=== PATIENT | female | born 1975 | race Caucasian/White ===

== ENCOUNTER → 2017-10-03 07:56 | Outpatient (CLI) | payer MEDICAID, SELFPAY ==
--- NOTE | 2017-10-03 07:58 | MM_ITS ---
MM Dig screening mamm BI w/CAD CAD Screening COMPARISON: Baseline digital mammograms 01/25/2013 INDICATION: There is no personal or family history of breast cancer TECHNIQUE: Standard CC and MLO images were obtained. R2 CAD reviewed. FINDINGS: Moderate diffuse fiber glandular densities are seen in both breasts slightly more prominent subareolar region right breast than left. Is a possible change in asymmetric density subareolar region left breast and has increased in heterogenic densities in the subareolar region right breast. There are multiple calcifications right breast most typical sclerosing adenosis but they show interval increase in number from the previous study. For these reasons suggest patient return for spot compression views of the areas marked on the study bilaterally. IMPRESSION: Moderate breast density with changes in both breast as described above and recommend patient return for additional imaging BI-RADS Category: 0 Need Additional Imaging Evaluation RECOMMENDED FOLLOW-UP: IMM - IMMEDIATE FOLLOW-UP RECOMMENDED (A letter has been sent to the patient regarding results of the study.)
== END ==
PROVIDERS: PCP Nurse Practitioner Family; Visit Provider Obstetrics & Gynecology
DX: Z12.31 Encounter for screening mammogram for malignant neoplasm of breast (principal)
CPT/HCPCS: 77067

== ENCOUNTER → 2017-10-20 14:04 | Outpatient (CLI) | payer MEDICAID, SELFPAY ==
--- NOTE | 2017-10-20 14:06 | MM_ITS ---
MM Dig mamm BI DX w/CAD COMPARISON: 10/03/2017 and 01/25/2013 INDICATION: Follow-up abnormal mammogram ORDERING PHYSICIAN: Ismael Alex MD PATIENT AGE: 42 years TECHNIQUE: Spot compression views are performed of both breasts FINDINGS: Right breast: Pleomorphic calcifications are present loosely clustered in the upper outer aspect of the right breast. There are other areas of calcification also noted within the right retroareolar region. These calcifications have developed since 01/25/2013 and are at least mildly suspicious. Biopsy of both of these regions is recommended Left breast: The area of asymmetric density in the retroareolar region and upper outer left breast both appear to compress out as fibroglandular tissue similar to previous exam of 01/25/2013 IMPRESSION: Suspicious calcifications in the upper outer right breast and right retroareolar region. BI-RADS Category: 4 Suspicious Abnormality-Biopsy Considered RECOMMENDED FOLLOW-UP: BIO - BIOPSY RECOMMENDED Recommend stereotactic directed biopsy of the right breast calcifications (A letter has been sent to the patient regarding results of the study.)
== END ==
PROVIDERS: PCP Nurse Practitioner Family; Visit Provider Obstetrics & Gynecology
DX: R92.8 Other abnormal and inconclusive findings on diagnostic imaging of breast (principal)
CPT/HCPCS: 77066

== ENCOUNTER → 2017-11-09 08:47 | Outpatient (CLI) | payer MEDICAID, SELFPAY ==
--- NOTE | 2017-11-09 | MM_ITS ---
MM stereotactic loc RT, MM stereotactic RT loc ea add MM Dig mamm DX unilat RT CAD, Stereotactic biopsy 2 SITES right breast, with clip placement at both sites Limited focused H&P: HISTORY: Extensive Breast calcifications which have shown marked change since 2012 Limited physical exam performed by Dr. Russ. Lungs: Clear.Heart: Regular rate and rhythm.Mental status: Within normal limits. PROCEDURE: Stereotactic biopsy performed 2 SITES right breast clip placement at both sites The patient was given 1 mg of Xanax, Lortab7. 5 mg, and analgesia and minor sedation. SITE A... STEREOTACTIC BIOPSY W/ CLIP PLACEMENT Upper-outer quadrant right breast The patient was placed on the stereotactic table and abnormal calcifications upper-outer quadrant localized most appropriate projection. The breast was prepped in the routine manner, with sterile prep and the overlying skin anesthetized. A tiny< 3 mm skin incision was performed and the 9 gauge [employer] vacuum-assisted core biopsy needle was advanced to the region of the calcification. Pre- and post fire images were obtained. After adequate positioning relative to the calcifications was ensured, multiple biopsies were obtained in the region of the calcifications specifically. The core biopsies obtained were sent for specimen mammography. NOTE: The patient had extensive calcifications which which were most extensive in the area labeled SITE A. These were well sampled. Just inferior to site a was a rather contiguous area of density with grouped calcifications labeled site B for which was considered potential third biopsy.. However after reviewing the fairly extensive training representative calcifications obtained from site a we felt that best to 2 also sampled a more distant site C a particular since the patient been on the table for lengthy. Of time and we did not feel a third stereotactic biopsy site would be feasible SITE C ..2nd STEREOTACTIC BIOPSY SITE, W/ CLIP PLACEMENT Retroareolar Region Patient was repositioned additional inspector fibrous wallboard performed. a second area of grouped calcifications corresponding with see at the retroareolar region was identified. Sterile skin preparation performed and a small less 2-3 mm incision was made in the skin through which the cirrhosis needle was advanced. These calcifications were targeted. Initial pass resulted only a few calcifications and thus the needle was slightly repositioned with additional calcifications obtained here at Site C The patient tolerated the procedures very well without significant discomfort complications.There are likely be some fairly extensive bruising. Specimen was sent for pathologic analysis which should be forthcoming within 3 working days. Routine follow-up phone call to patient is to be performed as well. A tiny titanium nonferromagnetic MicroMark with collagen plug was positioned through the mammotome needle into the both of these biopsy site described above at site a and site seen.. IMPRESSION: 1. Successful stereotactic vacuum-assisted core biopsy at 2 sites. SITE A: Upper-Outer Quadrant SITE C: Retroareolar Region Numerous right breast calcifications removed from.Both at SITE A & SITE C. 2 ... Successful placement of a titanium metal micromark. At both SITE A & SITE C 3. Patient tolerated procedure well No noted significant complications but anticipate moderately pronounced bruising at breast post biopsy TWO SPECIMEN RADIOGRAPHs: (From SITE A & SITE C:) SITE A: upper-outer quadrant ( note V label on this specimen radiograph image.) The mammographically evident numerous calcifications currently evident within the Arnav dish and within the specimens obtained during mammotome procedure. This
--- NOTE | 2017-11-09 08:49 | MM_ITS ---
MM stereotactic loc RT, MM stereotactic RT loc ea add MM Dig mamm DX unilat RT CAD, Stereotactic biopsy 2 SITES right breast, with clip placement at both sites Limited focused H&P: HISTORY: Extensive Breast calcifications which have shown marked change since 2012 Limited physical exam performed by Dr. Russ. Lungs: Clear.Heart: Regular rate and rhythm.Mental status: Within normal limits. PROCEDURE: Stereotactic biopsy performed 2 SITES right breast clip placement at both sites The patient was given 1 mg of Xanax, Lortab7. 5 mg, and analgesia and minor sedation. SITE A... STEREOTACTIC BIOPSY W/ CLIP PLACEMENT Upper-outer quadrant right breast The patient was placed on the stereotactic table and abnormal calcifications upper-outer quadrant localized most appropriate projection. The breast was prepped in the routine manner, with sterile prep and the overlying skin anesthetized. A tiny< 3 mm skin incision was performed and the 9 gauge [employer] vacuum-assisted core biopsy needle was advanced to the region of the calcification. Pre- and post fire images were obtained. After adequate positioning relative to the calcifications was ensured, multiple biopsies were obtained in the region of the calcifications specifically. The core biopsies obtained were sent for specimen mammography. NOTE: The patient had extensive calcifications which which were most extensive in the area labeled SITE A. These were well sampled. Just inferior to site a was a rather contiguous area of density with grouped calcifications labeled site B for which was considered potential third biopsy.. However after reviewing the fairly extensive healthcare representative calcifications obtained from site a we felt that best to 2 also sampled a more distant site C a particular since the patient been on the table for lengthy. Of time and we did not feel a third stereotactic biopsy site would be feasible SITE C ..2nd STEREOTACTIC BIOPSY SITE, W/ CLIP PLACEMENT Retroareolar Region Patient was repositioned additional industrial economist performed. a second area of grouped calcifications corresponding with see at the retroareolar region was identified. Sterile skin preparation performed and a small less 2-3 mm incision was made in the skin through which the cirrhosis needle was advanced. These calcifications were targeted. Initial pass resulted only a few calcifications and thus the needle was slightly repositioned with additional calcifications obtained here at Site C The patient tolerated the procedures very well without significant discomfort complications.There are likely be some fairly extensive bruising. Specimen was sent for pathologic analysis which should be forthcoming within 3 working days. Routine follow-up phone call to patient is to be performed as well. A tiny titanium nonferromagnetic MicroMark with collagen plug was positioned through the mammotome needle into the both of these biopsy site described above at site a and site seen.. IMPRESSION: 1. Successful stereotactic vacuum-assisted core biopsy at 2 sites. SITE A: Upper-Outer Quadrant SITE C: Retroareolar Region Numerous right breast calcifications removed from.Both at SITE A & SITE C. 2 ... Successful placement of a titanium metal micromark. At both SITE A & SITE C 3. Patient tolerated procedure well No noted significant complications but anticipate moderately pronounced bruising at breast post biopsy TWO SPECIMEN RADIOGRAPHs: (From SITE A & SITE C:) SITE A: upper-outer quadrant ( note V label on this specimen radiograph image.) The mammographically evident numerous calcifications currently evident within the Arnav dish and within the specimens obtained during mammotome procedure. This
== END ==
PROVIDERS: PCP Nurse Practitioner Family; Visit Provider Obstetrics & Gynecology
DX: R92.8 Other abnormal and inconclusive findings on diagnostic imaging of breast (principal)
CPT/HCPCS: 19081; 19082; 77065

== ENCOUNTER → 2017-12-15 11:31 | Outpatient (CLI) | payer MEDICAID, SELFPAY ==
[2017-12-15 12:06] LABS: Basophils # 0.1 K/mm3 (0-0.2); Basophils % 1.6 % (0.1-2.0); Eosinophils # 0.1 K/mm3 (0.0-0.4); Eosinophils % 2.1 % (0.1-12.0); Hematocrit 45.3 % (37.0-47.0); Hemoglobin 15.5 g/dL (12.2-16.2); Lymphocytes # 1.5 K/mm3 (0.7-4.5); Lymphocytes % 36.5 K/mm3 (10-50); Mean Corpuscular HGB Conc 34.3 g/dL (31.8-35.4); Mean Corpuscular Hemoglobin 31.3 pg (27.0-31.2); Mean Corpuscular Volume 91.5 fl (81-99); Mean Platelet Volume 9.4 fl (7.4-10.4); Monocytes # 0.4 K/mm3 (0.1-1.0); Monocytes % 9.8 % (1.7-9.3); Neutrophils # 2.1 K/mm3 (1.8-7.8); Platelet Count 180 K/mm3 (142-424); Red Blood Count 4.95 M/mm3 (4.20-5.40); White Blood Count 4.2 K/mm3 (4.8-10.8)
[2017-12-15 17:39] LABS: Alanine Aminotransferase 163 U/L (12-78); Albumin/Globulin Ratio 1.1 (1.1-1.8); Alkaline Phosphatase 170 U/L (46-116); Anion Gap 13.3 mEq/L (5-15); Aspartate Amino Transferase 64 U/L (15-37); Bilirubin,Total 0.2 mg/dL (0.2-1.0); Blood Urea Nitrogen 12 mg/dL (7-18); Calcium 9.5 mg/dL (8.5-10.1); Carbon Dioxide 26 mmol/L (21.0-32.0); Chloride 101 mmol/L (98-107); Chol/HDL Ratio 4.3 (1-3.5); Cholesterol 165 mg/dL (140-200); Creatinine,Serum 0.64 mg/dL (0.55-1.02); Estimated Glomerular Filt Rate 103 ml/min (>60); GFR (African American) 124 ML/MIN (>60); Globulin 3.5 gm/dl (1.3-3.2); Glucose 89 mg/dL (74-106); HDL Cholesterol 38 mg/dL (29-89); LDL Cholesterol 95 mg/dL (0-130); Potassium 4.3 mmoL/L (3.5-5.1); Sodium 136 mmol/L (136-145); Thyroid Stimulating Hormone 3.43 uIU/ml (0.358-3.740); Total Protein,Serum 7.5 gm/dL (6.4-8.2); Triglycerides 159 mg/dL (30-200); VLDL Cholesterol 32 mg/dL (0-40)
[2017-12-16 13:51] LABS: Vitamin D 25 Hydroxy 35.8 ng/mL (30.0-100.0)
[2017-12-18 06:26] LABS: Vitamin B12 1248 pg/mL (232-1245)
== END ==
PROVIDERS: Visit Provider Nurse Practitioner Family
DX: R53.83 Other fatigue (principal); R79.89 Other specified abnormal findings of blood chemistry
CPT/HCPCS: 36415; 80053; 80061; 82607; 82652; 84443; 85025

== ENCOUNTER → 2017-12-23 07:34 | Outpatient (CLI) | payer MEDICAID, SELFPAY ==
--- NOTE | 2017-12-23 08:16 | US_ITS ---
US abdomen limited HISTORY: ITS.REASON: ELEVATED LIVER ENZYMES ORDERING PHYSICIAN: Abimbola Araujo PATIENT AGE: 42 years Comparison: 01/07/2015 FINDINGS: PANCREAS: Unremarkable. No obvious mass or abnormal fluid collection. No ductal dilatation LIVER: No focal liver lesions demonstrated. Homogeneous echogenicity. No intrahepatic biliary ductal dilatation evident RIGHT KIDNEY: Unremarkable. Normal size and echogenicity. No hydronephrosis GALLBLADDER: No gallstones, gallbladder wall thickening, pericholecystic fluid, or biliary dilatation. Small hyperechoic focus is present along the posterior aspect of the fundus of the gallbladder at 5 mm consistent with a small polyp similar to the previous exam. IMPRESSION: 1. Small gallbladder polyp. 2. Otherwise negative right upper quadrant ultrasound
== END ==
PROVIDERS: PCP Nurse Practitioner Family; Visit Provider Nurse Practitioner Family
DX: R74.8 Abnormal levels of other serum enzymes (principal)
CPT/HCPCS: 76705

== ENCOUNTER → 2018-05-26 10:36 | Outpatient (CLI) | payer MEDICAID, SELFPAY ==
--- NOTE | 2018-05-26 10:38 | US_ITS ---
US transvaginal HISTORY: ITS.REASON: breast cancer ORDERING PHYSICIAN: Ismael Alex MD PATIENT AGE: 43 years Comparison: None FINDINGS: The patient has had a prior hysterectomy. The left ovary is 4 x 2.5 x 2 cm with heterogeneous echogenicity and contains a 14 x 16 x 13 mm cyst as well as a 12 x 10 mm cyst and a 13 x 10 mm cyst. The right ovary is enlarged at 5.4 x 2.6 cm and contains at least 3 cysts measuring 2.6 x 1.3, 1 x 1 cm, and 1.2 x 1 cm. At the vaginal cuff there is an oval area of isoechogenicity which measures 2.6 x 1.7 cm. This contains specular echoes and is fairly well-circumscribed. No cul-de-sac fluid evident. IMPRESSION: 1. Bilateral ovarian cysts as described above. 2. Isoechoic lesion at the vaginal stump which could represent an endometrioma or adjacent hemorrhagic cyst . Consider MRI for further evaluation.
== END ==
PROVIDERS: PCP Nurse Practitioner Family; Visit Provider Obstetrics & Gynecology
DX: C50.919 Malignant neoplasm of unspecified site of unspecified female breast (principal)
CPT/HCPCS: 76830

== ENCOUNTER → 2018-06-01 10:33 | Outpatient (CLI) | payer MEDICAID, SELFPAY ==
[2018-06-01 10:36] LABS: Microscopic, Urine URINE MICROSCOPIC (MICROSCOPIC)
[2018-06-01 10:49] LABS: Appearance,Urine CLEAR (Clear); Bilirubin,Urine Negative (Negative); Blood, Urine Negative (Negative); Color,Urine YELLOW (Yellow); Glucose,Urine (UA) Negative (Negative); Ketones,Urine Negative (Negative); Leukocyte Esterase,Urine TRACE (Negative); Nitrate,Urine Negative (Negative); Protein,Urine Negative (Negative); Specific Gravity, Urine 1.025 (1.005-1.030)
[2018-06-01 10:50] LABS: Urine Pregnancy, HCG Qual. Negative (Negative)
[2018-06-01 10:56] LABS: Bacteria,Urine 4+ /lpf; Mucus,Urine 3+ /lpf; WBC,Urine Occasional #/hpf (0-3)
[2018-06-01 11:00] LABS: Basophils # 0.1 K/mm3 (0-0.2); Basophils % 1.1 % (0.1-2.0); Eosinophils # 0.1 K/mm3 (0.0-0.4); Hematocrit 43.4 % (37.0-47.0); Hemoglobin 13.9 g/dL (12.2-16.2); Lymphocytes # 2.2 K/mm3 (0.7-4.5); Lymphocytes % 29.9 K/mm3 (10-50); Mean Corpuscular Volume 93.8 fl (81-99); Monocytes # 0.4 K/mm3 (0.1-1.0); Monocytes % 5.6 % (1.7-9.3); Neutrophils # 4.6 K/mm3 (1.8-7.8); Neutrophils % 62.4 % (37.0-80.0); Platelet Count 231 K/mm3 (142-424); Red Blood Count 4.63 M/mm3 (4.20-5.40); Red Cell Distribution Width 13.9 % (11.5-17.5); White Blood Count 7.4 K/mm3 (4.8-10.8)
[2018-06-01 12:54] LABS: Alanine Aminotransferase 23 U/L (12-78); Albumin Level 3.7 gm/dL (3.4-5.0); Albumin/Globulin Ratio 1.1 (1.1-1.8); Alkaline Phosphatase 85 U/L (46-116); Anion Gap 12.6 mEq/L (5-15); Aspartate Amino Transferase 13 U/L (15-37); Bilirubin,Total 0.3 mg/dL (0.2-1.0); Blood Urea Nitrogen 11 mg/dL (7-18); Calcium 9.1 mg/dL (8.5-10.1); Carbon Dioxide 28 mmol/L (21.0-32.0); Chloride 103 mmol/L (98-107); Creatinine,Serum 0.59 mg/dL (0.55-1.02); Estimated Glomerular Filt Rate 112 ml/min (>60); GFR (African American) 136 ML/MIN (>60); Globulin 3.3 gm/dl (1.3-3.2); Glucose 86 mg/dL (74-106); Potassium 4.6 mmoL/L (3.5-5.1); Sodium 139 mmol/L (136-145)
== END ==
PROVIDERS: PCP Nurse Practitioner Family; Visit Provider Obstetrics & Gynecology
DX: Z01.818 Encounter for other preprocedural examination (principal); C50.911 Malignant neoplasm of unspecified site of right female breast
CPT/HCPCS: 36415; 80053; 81001; 81025; 85025; 87086

== ENCOUNTER → 2018-12-25 08:14 | Outpatient (CLI) | payer MEDICAID, SELFPAY ==
--- NOTE | 2018-12-25 08:31 | US_ITS ---
US abdomen limited History:Right upper quadrant pain Ordering Physician:Abimbola Araujo APRN Patient Age: 43 years Comparison:None Findings: Pancreas:Pancreas is poorly demonstrated due to overlying bowel gas and may be better evaluate with CT if clinically desired. Liver:Unremarkable. No obvious mass or abnormal fluid collection. No ductal dilatation Right Kidney:Unremarkable. Normal size and echogenicity. No hydronephrosis Gallbladder:No gallstones, gallbladder wall thickening, pericholecystic fluid, or biliary dilatation. Small gallbladder polyp is again noted along the dorsal aspect of the gallbladder 5 mm. Small amount sludge is present in the gallbladder Impression: Small gallbladder polyp and a mild amount of gallbladder sludge otherwise negative right upper quadrant ultrasound
[2018-12-25 10:54] LABS: Alanine Aminotransferase 33 U/L (12-78); Albumin Level 3.7 gm/dL (3.4-5.0); Albumin/Globulin Ratio 0.9 (1.1-1.8); Alkaline Phosphatase 109 U/L (46-116); Anion Gap 14.5 mEq/L (5-15); Aspartate Amino Transferase 16 U/L (15-37); Bilirubin,Total 0.2 mg/dL (0.2-1.0); Blood Urea Nitrogen 11 mg/dL (7-18); Calcium 9.1 mg/dL (8.5-10.1); Carbon Dioxide 28 mmol/L (21.0-32.0); Chloride 101 mmol/L (98-107); Chol/HDL Ratio 4.9 (1-3.5); Cholesterol 237 mg/dL (140-200); Creatinine,Serum 0.68 mg/dL (0.55-1.02); Estimated Glomerular Filt Rate 95 ml/min (>60); GFR (African American) 115 ML/MIN (>60); Globulin 3.9 gm/dl (1.3-3.2); Glucose 90 mg/dL (74-106); HDL Cholesterol 48 mg/dL (29-89); LDL Cholesterol 137 mg/dL (0-130); Potassium 4.5 mmoL/L (3.5-5.1); Sodium 139 mmol/L (136-145); Total Protein,Serum 7.6 gm/dL (6.4-8.2); Triglycerides 262 mg/dL (30-200); VLDL Cholesterol 52 mg/dL (0-40)
== END ==
PROVIDERS: PCP Nurse Practitioner Family; Visit Provider Nurse Practitioner Family
DX: Z00.00 Encounter for general adult medical examination without abnormal findings (principal); I10 Essential (primary) hypertension; R10.11 Right upper quadrant pain
CPT/HCPCS: 36415; 76705; 80053; 80061

== ENCOUNTER → 2018-12-29 08:02 | Outpatient (CLI) | payer MEDICAID, SELFPAY ==
--- NOTE | 2018-12-29 08:03 | XR_ITS ---
DEXA SCAN.-BONE DENSITY STUDY HIPS AND LUMBAR SPINE HISTORY: Postmenopausal female taking tamoxifen one year 43-year-old postmenopausal female. Smoker. Hysterectomy/ovaries removed TECHNIQUE: DEXA scan hip and lumbar spine The most complete data summary and color graphic presentation of the today's ( and any prior ) DEXA findings are available in PACS. Definition and treatment guidelines included. COMPARISON: None listed LUMBAR SPINE: L1 vertebral body demonstrates the lowest T score 0.1 with BMD1.145 g/cm sq = normal density Overall mean lumbar L1-L4 T score 0.5 with BMD1.236 g/cm sq . = Normal density . HIPS: Femoral neck density is best predictor of hip fracture risk . Left femoral neck demonstrates the lower T score -0.7 with BMD0.935 g/cm sq . = Normal density Right femoral neck T score -0.6 with BMD 0.959 all region included with s Hip Mean T score = 0.0 . with BMD1.009 g/cm sq . Normal density . IMPRESSION ... Normal bone density 1. LUMBAR SPINE: . normal bone density at all levels and overall. Overall T score = 2. HIPS: Normal bone density at the femoral necks and overall at hips. WHO criteria for post-menopausal, Women: Normal: T-score at or above -1 SD Osteopenia: T-score between -1 and -2.5 SD Osteoporosis: T-score at or below -2.5 SD
== END ==
PROVIDERS: PCP Nurse Practitioner Family; Visit Provider Obstetrics & Gynecology
DX: Z78.0 Asymptomatic menopausal state (principal)
CPT/HCPCS: 77080

== ENCOUNTER → 2019-06-15 08:14 | Outpatient (CLI) | payer OTHER, SELFPAY ==
[2019-06-15 08:36] LABS: Basophils # 0.1 K/mm3 (0-0.2); Basophils % 1.3 % (0.1-2.0); Eosinophils # 0.1 K/mm3 (0.0-0.4); Hematocrit 40.9 % (37.0-47.0); Hemoglobin 12.9 g/dL (12.2-16.2); Lymphocytes % 35.7 % (10-50); Mean Corpuscular HGB Conc 31.6 g/dL (31.8-35.4); Mean Corpuscular Hemoglobin 30.2 pg (27.0-31.2); Mean Corpuscular Volume 95.6 fl (81-99); Mean Platelet Volume 9.2 fl (7.4-10.4); Monocytes # 0.3 K/mm3 (0.1-1.0); Monocytes % 5.5 % (1.7-9.3); Neutrophils # 3.1 K/mm3 (1.8-7.8); Neutrophils % 55.5 % (37.0-80.0); Platelet Count 245 K/mm3 (142-424); Red Blood Count 4.28 M/mm3 (4.20-5.40); Red Cell Distribution Width 13.4 % (11.5-17.5); White Blood Count 5.6 K/mm3 (4.8-10.8)
[2019-06-15 09:27] LABS: Alanine Aminotransferase 31 U/L (12-78); Albumin Level 3.5 gm/dL (3.4-5.0); Albumin/Globulin Ratio 1.1 (1.1-1.8); Alkaline Phosphatase 109 U/L (46-116); Aspartate Amino Transferase 16 U/L (15-37); Bilirubin,Total 0.2 mg/dL (0.2-1.0); Blood Urea Nitrogen 10 mg/dL (7-18); Calcium 9.1 mg/dL (8.5-10.1); Carbon Dioxide 28 mmol/L (21.0-32.0); Chloride 104 mmol/L (98-107); Chol/HDL Ratio 3.9 (1-3.5); Cholesterol 209 mg/dL (140-200); Creatinine,Serum 0.62 mg/dL (0.55-1.02); Estimated Glomerular Filt Rate 106 ml/min (>60); GFR (African American) 128 ML/MIN (>60); Globulin 3.2 gm/dl (1.3-3.2); Glucose 140 mg/dL (74-106); HDL Cholesterol 53 mg/dL (29-89); LDL Cholesterol 123 mg/dL (0-130); Sodium 140 mmol/L (136-145); Total Protein,Serum 6.7 gm/dL (6.4-8.2); Triglycerides 167 mg/dL (30-200); VLDL Cholesterol 33 mg/dL (0-40)
[2019-06-15 16:08] LABS: Hemoglobin A1C 5.7 % (0.0-7.0)
== END ==
PROVIDERS: Visit Provider Nurse Practitioner Family
DX: G45.9 Transient cerebral ischemic attack, unspecified (principal); C50.911 Malignant neoplasm of unspecified site of right female breast; I10 Essential (primary) hypertension; E78.00 Pure hypercholesterolemia, unspecified; R73.9 Hyperglycemia, unspecified
CPT/HCPCS: 36415; 80053; 80061; 83036; 85025

== ENCOUNTER → 2020-11-13 10:10 | Outpatient (CLI) | payer OTHER, SELFPAY ==
--- NOTE | 2020-11-13 | XR_ITS ---
PROCEDURE: XR CHEST 2V CLINICAL HISTORY: SOB, RIB PAIN ON RT SIDE COMPARISON: MG [facility] DIG MAMM-SCREEN [place] from 01/25/2013 CR CXR CHEST(2 VIEWS-NOT PORTABLE) from 08/25/2016 MG [facility] MM Dig screening mamm BI w/CAD from 10/03/2017 CR XR RIBS RT MIN 3V W CXR1V from 11/13/2020 FINDINGS: PA and lateral views of the chest: Unremarkable cardiovascular structures. The lungs are clear bilaterally aside from a calcified granuloma in the left lower lobe. No evidence of pneumothorax. Status post prior right mastectomy. No acute bony findings. Three views of the right ribs show no obvious fracture or dislocation. No lytic or blastic change. Multiple surgical clips are present from prior right mastectomy. IMPRESSION: No acute findings. Dictated by: Yakov Graham MD 11/13/2020 10:50 Yakov Graham MD in [facility] 11/13/2020 10:50
== END ==
PROVIDERS: PCP Nurse Practitioner Family; Visit Provider Nurse Practitioner Family
DX: R06.02 Shortness of breath (principal); R07.81 Pleurodynia
CPT/HCPCS: 71046; 71101

== ENCOUNTER 2021-07-13 11:39 | Emergency (ER) | payer OTHER, SELFPAY ==
[2021-07-13 11:45] VITALS: BP 142/104; PULSE 76; RESP 18; TEMP -17.7; TEMP 0
[2021-07-13 11:49] VITALS: BP 142/104; PULSE 76; RESP 18; O2SAT 100; BMI 28.9
== END 2021-07-13 11:50 | disposition left against medical advice (07) ==
LOC: UTC 12:06
PROVIDERS: Emergency Provider Nurse Practitioner; PCP Nurse Practitioner Family
DX: Z53.21 Procedure and treatment not carried out due to patient leaving prior to being seen by health care provider (principal)

== ENCOUNTER 2023-05-11 09:23 | Emergency (ER) | payer SELFPAY ==
[2023-05-11] VITALS (8 sets, daily range): BP systolic 126–169; BP diastolic 87–116; PULSE 60–70; RESP 16–20; TEMP 36.6; O2SAT 88–100; BMI 25.0
--- NOTE | 2023-05-11 09:29 | ECG_ITS ---
APPROVED REPORT Exam: Resting ECG HR:71 bpm ECG Measurements Heart Rate 71 AXES AZ 170 P 44 QRSd 97 QRS 46 QT 430 T 62 QTc 453 Conclusion SINUS RHYTHM INCOMPLETE RIGHT BUNDLE BRANCH BLOCK [90+ ms QRS DURATION, TERMINAL R IN V1/V2, 40+ ms S IN I/aVL/V4/V5/V6] BORDERLINE ECG UNCONFIRMED REPORT Electronically signed by : Rubens Pizarro MD 05/12/2023 07:31:59
--- NOTE | 2023-05-11 09:44 | XR_ITS ---
PROCEDURE INFORMATION: Exam: XR Chest Exam date and time: 05/11/2023 9:44 AM Age: 48 years old Clinical indication: Patient HX: PT reports tingling in R hand that began this morning, also having R sided back pain in flank area up to shoulder blade. PT reprots chest pain last night, tingling on R side of face yesterday. PT reports episode of vomiting this morning. TECHNIQUE: Imaging protocol: Radiologic exam of the chest. Views: 2 views. COMPARISON: CR XR CHEST 2V 11/13/2020 10:16 AM FINDINGS: Lungs: No consolidation or lung nodules. Calcified granuloma in the left lung base. Pleural spaces: No pleural effusion. No pneumothorax. Heart/Mediastinum: No abnormalities. No cardiomegaly. No pulmonary vascular congestion. Bones/joints: No fractures or bone lesions. Soft tissues: Right mastectomy changes. IMPRESSION: No acute findings in the chest. No interval change.
--- NOTE | 2023-05-11 09:44 | PC.NURSE ---
Dr. Harmon at [facility]
[2023-05-11 09:55] LABS: Chloride 107 mmol/L (98-107); Potassium 3.9 mmoL/L (3.5-5.1); Sodium 141 mmol/L (136-145)
[2023-05-11 09:57] LABS: Basophils # 0.1 K/mm3 (0-0.2); Basophils % 1.3 % (0.1-2.0); Blood Urea Nitrogen 9 mg/dl (7-17); Creatinine Clearance Estimated 115 mL/min (50-200); Eosinophils # 0.1 K/mm3 (0.0-0.4); Eosinophils % 1.7 % (0.1-12.0); Estimated Glomerular Filt Rate 108 ml/min (>60); GFR (African American) 130 ML/MIN (>60); Hematocrit 46.5 % (37.0-47.0); Lymphocytes # 2.7 K/mm3 (0.7-4.5); Lymphocytes % 39.4 % (10-50); Mean Corpuscular HGB Conc 32.3 g/dL (31.8-35.4); Mean Corpuscular Hemoglobin 29.6 pg (27.0-31.2); Mean Corpuscular Volume 91.5 fl (81-99); Mean Platelet Volume 9.2 fl (7.4-10.4); Monocytes # 0.4 K/mm3 (0.1-1.0); Monocytes % 6.4 % (1.7-9.3); Neutrophils # 3.4 K/mm3 (1.8-7.8); Neutrophils % 51.2 % (37.0-80.0); Platelet Count 280 K/mm3 (142-424); Red Blood Count 5.08 M/mm3 (4.20-5.40); White Blood Count 6.7 K/mm3 (4.8-10.8)
--- NOTE | 2023-05-11 09:57 | PC.NURSE ---
pt arrived back to room from rad
[2023-05-11 09:58] LABS: Alanine Aminotransferase 27 U/L (12-78); Albumin Level 4.3 g/dl (3.5-5.0); Albumin/Globulin Ratio 1.3 (1.1-1.8); Alkaline Phosphatase 136 U/L (38-126); Anion Gap 11.9 mEq/L (5-15); Aspartate Amino Transferase 27 U/L (14-36); Bilirubin,Total 0.3 mg/dl (0.2-1.3); Calcium 9.4 mg/dl (8.4-10.2); Carbon Dioxide 26 mmol/L (22.0-30.0); Globulin 3.4 g/dL (1.3-3.2); Glucose 108 mg/dl (74-100); Total Protein,Serum 7.7 g/dl (6.3-8.2)
--- NOTE | 2023-05-11 09:59 | HMH.EDGENADL ---
Discharge Plan Disposition Patient Disposition: Home, Self-Care Condition: Good Prescriptions Prescriptions: New lisinopril-hydrochlorothiazide 10-12.5 mg tablet 1 tab PO DAILY Qty: 30 0RF No Action lisinopril-hydrochlorothiazide 1 EACH tablet 1 tab PO DAILY Rx Instructions: pt states off of medication x3 weeks r/t no refills Referrals Follow up/Referrals: Abimbola Ontiveros APRN [Primary Care Provider] - See instructions Activity Restrictions/Add. Instructions Additional Instructions/Restrictions: You were evaluated in the emergency department today. 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 We are starting you on a low-dose of this since you have been off of it. Follow-up with your primary care provider over the next 3 days. Return to the emergency department for new or worsening symptoms. Clinical Impressions Clinical Impression: Chest wall pain, Anxiety Instructions Patient Instructions: DI for Atypical Chest Pain, DI for Anxiety -- Adult Discharge ED Provider: Valentine Harmon General Adult HPI General Chief complaint: Weakness Stated complaint: back pain, facial numbness,vomiting, hand numb Time Seen by Provider: 05/11/23 09:36 Mode of Arrival: Ambulatory Source of Information: Patient Limitations: No Limitations Description of Symptoms (Recalled from ER Triage Doc. by RN): Pt reports tingling in R hand that began this morning, also having R sided back pain in Flank area up to shoulder blade. Pt reprots chest pain last night, tingling on R side of face yesterday. PT reports episode of vomiting this morning. History of Present Illness HPI narrative: This patient is a 48-year-old female with a history of breast cancer status post right mastectomy, hypertension, and anxiety presenting to the emergency department for evaluation with concern for 1 week of right shoulder/upper back pain and right upper extremity tingling. She also reports the last night, she had pain wrapping around her chest that felt like tightness and pressure. She describes it as being dull. She also complains that she has had numbness going up into her face. She states that her anxiety is currently through the roof and she has been under a lot of stress. She reports that on the way here, she developed nausea and vomiting as well. She denies any fevers, chills, cough, congestion, headaches, vision changes, weakness, abdominal pain, changes bowel movements, rashes, swelling, or other concerns. Related Data Home Medications Medication Instructions Recorded Confirmed lisinopril 20 1 tab PO DAILY blood pressure 06/05/18 12/21/18 mg-hydrochlorothiazide 12.5 mg tablet Previous Rx's Medication Instructions Recorded lisinopril 10 1 tab PO DAILY #30 tabs 05/11/23 mg-hydrochlorothiazide 12.5 mg tablet Allergies Allergy/AdvReac Type Severity Reaction Status Date / Time morphine [MORPHINE] Allergy Mild Verified 12/21/18 10:27 [facility] Disclaimer: The information contained in this section may have been updated after the patient was seen, as this information can be updated by other users. Social History Smoking Status: Current every day smoker tobacco type: cigarettes packs per day: 1 alcohol intake: never counseling provided: none substance use type: denies use current occupational status: unemployed Travel in the last 8 weeks: Inside the [place] household members: spouse housing: house ROS Obtained: Yes All systems reviewed & no additional complaints except as documented Physical Exam General General appearance: alert and anxious Comment: Anxious appearing, tearful Head Head exam: atraumatic and normocephalic Eye Eye exam: Present normal appearance, PERRL and EOMI ENT ENT exam: Present normal exam, normal oropharynx, mucous membranes moist and normal external ear exam
[2023-05-11 10:03] LABS: D-Dimer 0.43 ug/mL (0.0-0.5)
[2023-05-11 10:10] LABS: Troponin I < 0.01 ng/ml (0.00-0.034)
--- NOTE | 2023-05-11 10:40 | PC.NURSE ---
Checked on pt states no needs,daughter at [facility]
== END 2023-05-11 12:11 | disposition home or self-care (01) ==
PROVIDERS: Emergency Provider Emergency Medicine; PCP Nurse Practitioner Family
DX: R07.89 Other chest pain (principal); F41.9 Anxiety disorder, unspecified; I45.19 Other right bundle-branch block; R11.2 Nausea with vomiting, unspecified; F17.210 Nicotine dependence, cigarettes, uncomplicated
CPT/HCPCS: 71046; 80053; 84484; 85025; 85378; 93005; 99284

== ENCOUNTER 2024-04-15 16:46 | Emergency (ER) | payer OTHER, SELFPAY ==
[2024-04-15 16:46] VITALS: BP 125/83; PULSE 90; RESP 18; TEMP 36.7; O2SAT 99; BMI 25.7
--- NOTE | 2024-04-15 16:51 | HMH.EDGENADL ---
Discharge Plan Disposition Patient Disposition: Home, Self-Care Prescriptions Prescriptions: New epinephrine [EpiPen 2-Gunnar] 0.3 mg/0.3 mL auto-injector 0.3 mg IM Q10M PRN (Reason: anaphylaxis) Qty: 2 0RF Rx Instructions: for 2 doses No Action lisinopril-hydrochlorothiazide 1 EACH tablet 1 tab PO DAILY Rx Instructions: pt states off of medication x3 weeks r/t no refills lisinopril-hydrochlorothiazide 10-12.5 mg tablet 1 tab PO DAILY Qty: 30 0RF Referrals Follow up/Referrals: Provider,Referral, MD [Referring] - See instructions Activity Restrictions/Add. Instructions Additional Instructions/Restrictions: Call your family doctor to establish care for this visit to the emergency department and schedule follow-up within 48 hours to ensure improvement. If you have any worsening of your condition or any other concerning signs or symptoms, return to the emergency department or your primary care doctor for further evaluation. If you have swelling of your tongue or lips, difficulty breathing, whistling sound in your throat, wheezing, nausea or vomiting, sweating, diffuse rash/hives, lightheadedness, chest pain, shortness of breath, or any other concerns, return to the ER promptly for further evaluation. These are signs of anaphylaxis. Clinical Impressions Clinical Impression: Allergic reaction Print Language Print Language: [place] Discharge ED Provider: Earl Simmons General Adult HPI <LUIZ Diaz - Last Filed: 04/15/24 16:53> General Chief complaint: Allergic Reaction Stated complaint: Allergic Reaction Time Seen by Provider: 04/15/24 16:50 Related Data Home Medications ?Medication ?Instructions ?Recorded ?Confirmed lisinopril 20 1 tab PO DAILY blood pressure 06/05/18 12/21/18 mg-hydrochlorothiazide 12.5 mg tablet Previous Rx's ?Medication ?Instructions ?Recorded lisinopril 10 1 tab PO DAILY #30 tabs 05/11/23 mg-hydrochlorothiazide 12.5 mg tablet epinephrine 0.3 mg/0.3 mL 0.3 mg (0.3 mL) IM Q10M PRN 04/15/24 injection, auto-injector (EpiPen anaphylaxis #2 ea 2-Gunnar) Allergies Allergy/AdvReac Type Severity Reaction Status Date / Time morphine [MORPHINE] Allergy Mild Verified 12/21/18 10:27 <Earl Simmons MD - Last Filed: 04/15/24 18:09> History of Present Illness HPI narrative: Please note that above description of symptoms, in this electronic medical record under categorization of recalled from ER triage doctor by RN are reflective of an initial nursing assessment, however, is not reflective of my full history and physical exam that was personally taken and clarified. Consequentially, this preceding description of symptoms, which may include the patient's categorized chief complaint in the EMR, do not reflect my personal clinical impression, and the ultimate description of history of present illness and patient stated complaints should be deferred to this section of the note. Unless stated otherwise or congruent with this section of the note, additional signs, symptoms, or incongruence should be interpreted as inaccurate with my clinical impression. [facility] <LUIZ Diaz - Last Filed: 04/15/24 16:53> [facility] Disclaimer: The information contained in this section may have been updated after the patient was seen, as this information can be updated by other users. Social History Smoking Status: Current every day smoker tobacco type: cigarettes packs per day: 1 alcohol intake: never counseling provided: none substance use type: denies use current occupational status: unemployed Travel in the last 8 weeks: Inside the [place] household members: spouse housing: house <LUIZ Diaz - Last Filed: 04/15/24 16:53> ROS Obtained: Yes Systems reviewed as appropriate & no additional complaints except as documented Physical Exam <LUIZ Diaz - Last Filed: 04/15/24 16:53> General General appearance: alert and in no apparent distress Head Head exam: atraumatic and normal inspection Eye Eye exam: Present normal appearance, PERRL and EOMI ENT ENT exam: Present normal exam, normal oropharynx and mucous membranes moist Neck Neck exam: Present normal inspection, full ROM and trachea midline; Absent lymphadenopathy Chest Chest inspection: Present normal inspection and symmetric chest wall rise Respiratory Respiratory exam: Present normal lung sounds bilaterally; Absent accessory muscle use Cardiovascular Cardiovascular exam: Present regular rate, normal rhythm, normal heart sounds, +S1 and +S2 Abdominal Exam Abdominal exam: Present soft and normal bowel sounds; Absent tenderness, guarding or rebound Extremities Exam Extremities exam: Present normal inspection and full ROM Neurological Exam Neurological exam: Present alert, oriented X3 and CN II-XII intact Psychiatric Psychiatric exam: Present normal affect and normal mood Skin Skin exam: Present warm, dry and normal color Lymphatic Lymphatic Findings: no adenopathy <Earl Simmons MD - Last Filed: 04/15/24 18:09> General General appearance: anxious ENT ENT exam: Present other (No evidence of tonsillitis, exudate, pharyngeal erythema, uvular deviation, palatal swelling, trismus, external neck swelling, submental induration, dental abscess, angioedema, or other abnormal elias pharyngeal findings) Respiratory Respiratory exam: Absent respiratory distress or wheezes Abdominal Exam Abdominal exam: Absent distention Skin Skin exam: Present rash Medical Decision Making <LUIZ Diaz - Last Filed: 04/15/24 16:53> Vital Signs: 04/15/24 16:46 Temperature 98.0 F Temperature Source Oral Pulse Rate [Radial] 90 Respiratory Rate 18 Blood Pressure [Left Arm] 125/83 Blood Pressure Mean [Left Arm] 97 Blood Pressure Source [Left Arm] Automatic Cuff Blood Pressure Position [Left Arm] Sitting 02 Sat by Pulse Oximetry 99 Oxygen Delivery Method Room Air Orders (Tests/Meds): ED MEDICATIONS Generic Name Dose Route Start Last Admin Trade Name Freq PRN Reason Stop Dose Admin Sodium Chloride 8 ml 04/15/24 17:03 Sodium Chloride 0.9% 10ml Vial IV 05/15/24 17:02 NEEDED PRN dilute pepcid Discontinued Medications Generic Name Dose Route Start Last Admin Trade Name Freq PRN Reason Stop Dose Admin Famotidine 20 mg 04/15/24 17:03 04/15/24 17:00 Famotidine 20mg/2ml Vial IV 04/15/24 17:04 20 mg ONCE ONE Administration Methylprednisolone Sodium Succinate 125 mg 04/15/24 17:03 04/15/24 17:00 Methylprednisolone Sod Succ 125mg Vial IV 04/15/24 17:04 125 mg ONCE ONE Administration Medical Decision Narrative: In summary patient is a [age, sex] who presents to the emergency department for evaluation of [complaint]. Patient is [hemodynamically stable/unstable] upon arrival, [febrile/afebrile]. [Unremarkable physical exam, nonfocal exam versus focal remarkable exam]. Differential diagnosis includes [DDx]. Initial workup will be conducted with [hematologic labs, imaging, respiratory swab, describe workup]. Initial interventions include [crystalloid bolus, medications, p.o. challenge, etc.] initial workup reviewed by me [hematologic labs are remarkable for... Imaging remarkable for... Urinalysis remarkable for]. Upon repeat evaluation [patient had acceptable resolution of symptoms, had persistent pain for which additional interventions were conducted (describe interventions), tolerated p.o., was ambulatory, etc.]. Given this [patient is appropriate for discharge at this time and will be discharged with a prescription for... The case was discussed with hospital medicine regarding management and they will admit the patient their service for continued evaluation at this time... Etc.] Places where you can increase complexity: I informally interpreted the patient's chest x-ray or CT read and is remarkable for... Documenting what the quality assurance monitor shows with rate and rhythm Consideration of test but deferring. Ex: I considered chest x-ray on this patient however given that they have no oxygen requirement and are clear to auscultation all lung boone will be deferred. Social determinants of health: Given that patient is undomiciled increases complexity. Given that patient has polysubstance abuse compounds all aspects of care <Earl Simmons MD - Last Filed: 04/15/24 18:09> Medical Records Medical records reviewed: Yes I reviewed the patient's medical records. Omar Inquiry Pt receiving controlled substance: No Omar was queried for this patient: No Vital Signs: 04/15/24 16:46 Temperature 98.0 F Temperature Source Oral Pulse Rate [Radial] 90 Respiratory Rate 18 Blood Pressure [Left Arm] 125/83 Blood Pressure Mean [Left Arm] 97 Blood Pressure Source [Left Arm] Automatic Cuff Blood Pressure Position [Left Arm] Sitting 02 Sat by Pulse Oximetry 99 Oxygen Delivery Method Room Air Orders (Tests/Meds): ED MEDICATIONS Generic Name Dose Route Start Last Admin Trade Name Freq PRN Reason Stop Dose Admin Sodium Chloride 8 ml 04/15/24 17:03 Sodium Chloride 0.9% 10ml Vial IV 05/15/24 17:02 NEEDED PRN dilute pepcid Discontinued Medications Generic Name Dose Route Start Last Admin Trade Name Freq PRN Reason Stop Dose Admin Famotidine 20 mg 04/15/24 17:03 04/15/24 17:00 Famotidine 20mg/2ml Vial IV 04/15/24 17:04 20 mg ONCE ONE Administration Methylprednisolone Sodium Succinate 125 mg 04/15/24 17:03 04/15/24 17:00 Methylprednisolone Sod Succ 125mg Vial IV 04/15/24 17:04 125 mg ONCE ONE Administration Medical Decision Narrative: 49-year-old female with history of allergy to bug bites and bee stings presenting with erythema. Patient was stung in her little finger about an hour prior to this visit. Started having subjective tongue swelling, itching all over her body, went to a local nearby gas station to get Benadryl. Took 4 Benadryl, started to feel better. Continued to itch and feel uncomfortable, called EMS. On EMS arrival, she was anxious, patient states she started having panic attack. States that by the time EMS got there, her tongue and throat did not feel like they were swollen anymore this was about 20 minutes after taking the Benadryl. No nausea, vomiting, diarrhea, wheezing, cough, abdominal pain, syncope, lightheadedness, or any other concerns. History was obtained via conversation with patient and EMS. On arrival, patient hemodynamically stable, alert, oriented x4, appropriate, GCS 15, moving all extremities spontaneously, pupils equal and reactive to light. Full physical exam performed and significant for anxious appearing. Differential includes histamine related urticaria, anaphylaxis less likely, among others. Patient placed on continuous cardiac monitoring and continuous pulse ox with initial blood pressure 125/83, heart rate 90, saturation 99. Patient was given 125 Solu-Medrol and 20 of Pepcid here IV. On reevaluation, patient itching, requesting more medication, patient reassured given she was just given medication within a couple minutes. On reevaluation about 30 minutes later, patient states she is ready to go home, taking IV out, feels 100% better. Because patient at baseline without signs or symptoms of clinical decompensation, deemed appropriate for discharge. Results were relayed to patient who voiced understanding and were agreeable to outpatient management and follow up. I discussed my clinical impression with patient and answered all questions. At this time, the evidence for any other entities in the differential is insufficient to warrant any further testing or ED observation. This was explained as well. Advisory was given that persistent or worsening symptoms require further evaluation. I confirmed the understanding of this discussion. [employer] disclaimer Much of this encounter note is an electronic wig sales consultant spoken language to printed text. Electronic wig sales consultant of the spoken language may permit errors. Although I have reviewed the note, some errors may still exist. Critical Care <Earl Simmons MD - Last Filed: 04/15/24 18:09> Critical Care Time Critical Care Time: No
[2024-04-15] MEDS: FAMOTIDINE 20MG/2ML VIAL 20 MG IV (17:00)
[2024-04-15] MEDS: METHYLPREDNISOLONE SOD SUCC 125MG VIAL 125 MG IV (17:00)
--- NOTE | 2024-04-15 18:07 | PC.NURSE ---
Dr. Simmons updating pt
[2024-04-15 18:19] VITALS: BP 130/76; PULSE 80; RESP 20; TEMP 36.7; O2SAT 98
== END 2024-04-15 18:20 | disposition home or self-care (01) ==
PROVIDERS: Emergency Provider Emergency Medicine; PCP Nurse Practitioner Family
DX: T63.441A Toxic effect of venom of bees, accidental (unintentional), initial encounter (principal)
CPT/HCPCS: 96374; 96375; 99284; J2919; S0028